=== PATIENT | male | born 1970 | race Caucasian/White ===

== ENCOUNTER 2017-11-28 10:06 | Emergency (ER) | payer OTHER ==
[2017-11-28] MEDS ORDERED: OXYCODONE/APAP 5/325 TAB PO ONE (10:27)
--- NOTE | 2017-11-28 10:27 | EDPHY ---
General Time Seen by Provider: 11/28/17 10:16 Narrative: CHIEF COMPLAINT: Fall, knee pain HISTORY OF PRESENT ILLNESS: Patient complains of left knee pain after injury. He states that he was running on when he slipped and fell, landing on his left knee while bent. He had a very mild pain at that time and was able to continue jogging for short period. He has since then developed increasing pain and swelling. Difficulty bending and straightening the knee. Difficulty ambulating. No numbness or tingling. He has felt febrile at home without a true fever. He has not felt ill. He has no pain or swelling distally. Some improved with ibuprofen. No other associated complaints or modifying factors. REVIEW OF SYSTEMS: 10 systems were reviewed and negative with the exception of the elements mentioned in the history of present illness. PCP: Akash Reyes SPECIALISTS: None PAST MEDICAL HISTORY: Uncomplicated PAST SURGICAL HISTORY: No surgical SOCIAL HISTORY: No tobacco or alcohol use currently unemployed. Lives independently with his spouse FAMILY HISTORY: Noncontributory EXAMINATION: General Appearance: Alert, no distress Head: normocephalic, atraumatic Eyes: Pupils equal and round, no conjunctival pallor or injection Cardiovascular: Symmetric DP and PT pulses 2+. Good signs of perfusion the left lower extremity. Neurological: A&O, nonfocal, normal gait. Strength is symmetric in the ankles and great toes. Skin: Warm and dry, no rash. No petechiae or purpura. No warmth. No cellulitis Extremities: Tenderness and swelling to the left anterior knee. Range of motion does reveal limited flexion to 100. He is able to fully extend the knee. There is no crepitus or deformity. No tenderness to the right hip, ankle or calcaneus. Range of motion of the hip and ankle symmetric. Psychiatric: Mood and affect normal DIFFERENTIAL DIAGNOSES: Including but not limited to patellar fracture, sprain, strain, ACL injury, septic joint, bursitis MDM: 10:20 a.m. Fall with blunt trauma to the knee 2 days ago. He does have patellar pain and swelling but has no warmth, cellulitis or evidence of septic joint. He is neuro intact distally. There is no evidence of DVT or compartment syndrome. I have ordered x-ray of the knee. I have ordered pain medication. 11:30 a.m. X-rays negative for any acute findings. There is some early arthritic appearance. I re-evaluated the patient. He is feeling significantly better with Percocet. I discussed the likelihood of traumatic bursitis. Discussed Frank wrap for compression. We discussed ice, elevation anti-inflammatories over- the-counter. Short course of pain medication for the evening only. We discuss orthopedic referral for definitive care, ED precautions for worsening pain, swelling, numbness or tingling. He is comfortable this plan discharged home stable condition. SUPERVISION: This patient was independently evaluated without direct involvement of or examination by the attending physician. CONSULTATION: None. Orthopedic referral provided - Diagnostics Imaging Results: Imaging Impressions Knee X-Ray 11/28/17 10:27 Impression: Mild early degenerative change medial and patellofemoral compartments left knee. No evidence for acute fracture. Mild suprapatellar joint effusion. - History Smoking Status: Never smoked - Objective Vital Signs: Initial Vital Signs Temperature (C) 98.1 F 11/28/17 10:10 Heart Rate 70 11/28/17 10:10 Respiratory Rate 16 11/28/17 10:10 Blood Pressure 105/60 11/28/17 10:10 O2 Sat (%) 98 11/28/17 10:10 O2 Delivery Mode Room Air Allergies/Adverse Reactions: No Known Allergies Allergy (Verified 11/28/17 10:14) Home Medications: Medication Instructions Recorded Hydrocodone/APAP 5/325 [[place] 1 - 2 tab PO HS PRN #7 tab 11/28/17 5/325 (*)] Medications Given: Discontinued Medications Oxycodone/Acetaminophen (Percocet 5/325) 2 tab PO EDNOW ONE Stop: 11/28/17 10:28 Last Admin: 11/28/17 10:33 Dose: 2 tab Departure - Departure Disposition: Home, Routine, Self-Care Clinical Impression: Traumatic bursitis Condition: Good Instructions: Hydrocodone/Acetaminophen (By mouth), Knee Bursitis (ED) Additional Instructions: 1. Ice and elevation to the knee often 2. [id number] ibuprofen, 600 mg every 6-8 hours as needed for pain and swelling 3. Pain medication as prescribed for evening use. Do not combine with alcohol 4. Contact Orthopedics for definitive care 5. ED precautions for worsening pain or swelling, numbness, tingling or weakness. Referrals: Akash Reyes MD [Primary Care Provider] - As per Instructions Mg Russell MD [Medical Doctor] - As per Instructions Prescriptions: Hydrocodone/APAP 5/325 [[place] 5/325 (*)] 1 - 2 tab PO HS PRN #7 tab PRN Reason: Pain, Moderate
[2017-11-28 11:35] VITALS: BP 130/75
== END 2017-11-28 11:41 | disposition home or self-care (01) ==
DX: M25.562 Pain in left knee (principal); M79.89 Other specified soft tissue disorders; W01.0XXA Fall on same level from slipping, tripping and stumbling without subsequent striking against object, initial encounter; Y93.02 Activity, running

== ENCOUNTER 2018-03-28 21:12 | Emergency (ER) | payer OTHER ==
[2018-03-28 21:19] VITALS: BP 144/85
--- NOTE | 2018-03-28 22:11 | EDPHY ---
General - History Smoking Status: Never smoked Time Seen by Provider: 03/28/18 21:31 Narrative: CLINICAL IMPRESSION: Chronic lower wound ASSESSMENT/PLAN: 47-year-old male presents to the emergency department with 1 month of a non-healing wound on the right lower leg after a refrigerator was dropped on his leg. Patient reports no fevers or chills, has stable vital signs on arrival , is ambulatory without discomfort, and clinically has no signs of necrotizing fasciitis, compartment syndrome, osteomyelitis, cellulitis, or dissection. Distal neurovascular exam is intact. X-ray show no evidence of deep tissue infection or fracture. Fingerstick glucose shows no evidence of diabetes and patient reports no other significant past medical history. He is otherwise healthy, does not abuse IV drugs, and has a primary care provider. Tetanus is up-to-date. Patient was seen and examined by Dr. Barriga. He was referred to the wound Care Clinic for further management of his wound. Referrals given. Warning signs return to ED sooner outlined and discharge. DIFFERENTIAL DX: Differential diagnosis includes but not limited to chronic nonhealing wound, necrotizing fasciitis, deep space abscess and a compartment syndrome, MRSA, the lightest, osteomyelitis ED PROCEDURES: See lab and/or imaging results below Finger stick glucose normal ED COURSE: Case discussed with Dr. Barriga. Patient updated on x-ray findings and lab results. Encouraged to follow up with wound care. Referrals provided. CHIEF COMPLAINT: right leg wound HPI: 47-year-old otherwise healthy male presents to the emergency department with 1 month of a nonhealing wound to the right lower evangelista. Patient reports he was helping people move a refrigerator 1 month ago when the refrigerator slipped and scraped down his evangelista. He is able to show me a picture from 1 day following the incident which shows a small relatively superficial abrasions surrounded by contusions. 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 He has been putting Neosporin on the wound and notes that it has been progressively worsening, not healing, and seemingly larger in size. He has no associated fever, chills, pain with ambulation, nausea or vomiting, leg swelling. No history of staph or MRSA or chronic nonhealing wounds. No history of diabetes or immunocompromise state. No reports of purulent discharge. PAST MEDICAL HISTORY: None reported Pertinent Past Surgical History: None reported Family History: Noncontributory Social History: Nonsmoker, does not drink alcohol, otherwise healthy, lives with his and child REVIEW OF SYSTEMS: A full 10 point review of systems was negative except for those mentioned in HPI. PHYSICAL EXAM: General Appearance: Alert, oriented, appropriate, cooperative, NAD, well hydrated, non-toxic appearing, VSS, no hypoxia. Respiratory: There are no retractions, lungs are clear to auscultation. Cardiac: Regular rate and rhythm, no murmurs or gallops. Skin: 4.5 x 2 cm open, deep wound to right medial lower leg. No purulent discharge. No erythema, warmth to palpation, crepitus. Normal distal NV exam, ROM of ankle/foot/toes. MS: No calf pain or reproducible pain around wound edges. Edges are not approximated, no visible bone or fashion pain MEDICAL DECISION MAKING: Patient was seen independently. Secondary supervising physician at time of evaluation was: Dr. Barriga . Diagnosis: Chronic right lower leg wound. New, requires workup Summary: See Assessment and Plan for summary of ED visit Clinical lab tests: ordered / reviewed. Independent visualization of images, tracing, or specimens: Yes. Decision to obtain medical records or history from someone other than the patient: No Review / Summarize previous medical records: None available Discussed patient with another provider: Dr. Barriga who also saw and examined the patient Patient Progress: Stable. (Ramez Duvall) I have evaluated and participated in the management of this patient. My co- signature indicates that I have reviewed this chart and that I agree with the findings and the plan of care as documented. My personal history and physical findings include: 47-year-old male with 1 month history of nonhealing wound to the right lower evangelista. No history of diabetes or immune compromise. He has not had fever. No drainage from the wound. No pain with ambulation. On physical examination he has for and half by 2 cm wound overlying the right mid evangelista. Mild visible at the base of the wound. No purulence, no erythema, no warmth. Sensation intact over the right lower extremity. 2+ dorsalis pedis pulse. He is being referred to the wound care clinic. (Magda Barriga) - Diagnostics Imaging Results: Imaging Impressions Tibia/Fibula X-Ray 03/28/18 21:43 Impression: 1. Cutaneous defect medial aspect of the mid to distal third of the calf without gaseous extension into the adjacent soft tissues. 2. No underlying osseous abnormality seen. - Objective Vital Signs: Initial Vital Signs Temperature (C) 36.7 C 03/28/18 21:15 Heart Rate 62 03/28/18 21:15 Respiratory Rate 18 03/28/18 21:15 Blood Pressure 144/85 H 03/28/18 21:15 O2 Sat (%) 99 03/28/18 21:15 O2 Delivery Mode Room Air Allergies/Adverse Reactions: No Known Allergies Allergy (Verified 03/28/18 21:19) Home Medications: Medication Instructions Recorded NK [No Known Home Meds] 03/28/18 Laboratory Results: 03/28/18 21:49 POC Glucose 116 mg/dL H mg/dL (70-100) Point of Care Test Results: Chemistry 03/28/18 21:49 POC Glucose 116 mg/dL H mg/dL (70-100) Departure - Departure Disposition: Home, Routine, Self-Care Clinical Impression: Leg wound, right Condition: Good Instructions: Laceration (ED) Additional Instructions: DISCHARGE INSTRUCTIONS FROM YOUR DOCTOR Thank you for visiting our emergency department today. Please keep in mind that discharge from the emergency department does not mean that there is nothing wrong - it simply means that we have not identified an emergency condition that requires further evaluation or treatment in the hospital. You should always plan to follow up with primary care for re-evaluation of your condition in the next 2-3 days. If you have been referred to a specialist, please call as soon as possible (today or tomorrow) to schedule your follow up appointment at the appropriate time. YOU NEED TO FOLLOW-UP WITH WOUND CARE. WE GAVE YOU OF NUMBER FOR THE WOUND CARE [facility] WELL DR. MARGO NEUMANN WHO MANAGES THE WOUND CARE. PLEASE CONTACT DOCTOR NEUMANN IF YOU ARE UNABLE TO REACH THE WOUND CARE SERVICE. PLEASE LET THEM KNOW YOU WERE IN THE EMERGENCY DEPARTMENT AND WE REQUESTED AN EVALUATION WITH THEIR SERVICE FOR YOUR LEG WOUND. WE SEE NO EVIDENCE OF DIABETES TONIGHT AND NO X-RAY EVIDENCE TO SUGGEST DEEP TISSUE OR BONE INFECTION. PLEASE ALSO FOLLOW UP WITH A PRIMARY CARE PROVIDER. RETURN TO THE EMERGENCY DEPARTMENT SOONER FOR WORSENING PAIN, SWELLING, REDNESS OR WARMTH TO THE LEG, FEVERS OR CHILLS, INABILITY TO WALK OR ANY OTHER CONCERN. People present with illnesses and injuries in different ways, and it is always possible that we have missed something. You may always return for re-evaluation if symptoms worsen or if they are not improving or if you develop new/different symptoms. Again, thank you for choosing our emergency department. We hope that you feel better. Referrals: Akash Reyes MD [Primary Care Provider] - As per Instructions [facility] [Clinic] - As per Instructions Margo Neumann MD [Medical Doctor] - As per Instructions
== END 2018-03-28 23:15 | disposition home or self-care (01) ==
DX: S81.801A Unspecified open wound, right lower leg, initial encounter (principal); W20.8XXA Other cause of strike by thrown, projected or falling object, initial encounter; Y92.9 Unspecified place or not applicable; Y93.9 Activity, unspecified; Y99.9 Unspecified external cause status